=== PATIENT | male | born 1970 | race Caucasian/White ===

== ENCOUNTER 2016-05-25 18:57 | Inpatient (IN) | payer OTHER ==
[2016-05-25 19:21] VITALS: BMI 23.3
--- NOTE | 2016-05-25 20:21 | HP ---
COWS - Scale Resting Pulse: 0= [place] 80 or Below Sweatin= Chills/Flushing Restless Observation: 3= Extraneous Movement Pupil Size: 1= Pupils >than Normal Bone or Joint Aches: 2= Severe Diffuse Aches Runny Nose/ Eye Tearin= Runny Nose/Eyes GI Upset > 30mins: 1= Stomach Cramp Tremor Observation: 2= Slight Tremor Visible Yawning Observation: 1= 1-2x During Session Anxiety or Irritability: 2=Irritable/Anxious Goose Flesh Skin: 0=Smooth Skin COWS Score: 15 Admission ROS S - HPI Chief Complaint: WITHDRAWAL SX Allergies/Adverse Reactions: Allergies Allergy/AdvReac Type Severity Reaction Status Date / Time No Known Allergies Allergy Verified 05/25/16 19:50 History of Present Illness: 45 YEARS OLD MALE WITH LONG HISTORY OF OPIATE NICOTINE DEPENDENCE DENIES MEDICAL ISSUE DENIES MENTAL ILLNESS IS ADMITTED TO DETOX Exam Limitations: No Limitations - Ebola screening Have you traveled outside of the country in the last 21 days: No Have you had contact with anyone from an Ebola affected area: No Have you been sick,other than usual withdrawal symptoms: No Do you have a fever: No - Review of Systems Constitutional: Chills, Loss of Appetite, Changes in sleep, Unexplained wgt Loss EENT: reports: No Symptoms Reported Respiratory: reports: No Symptoms reported Cardiac: reports: No Symptoms Reported GI: reports: Poor Appetite, Poor Fluid Intake, Abdominal cramping : reports: No Symptoms Reported Musculoskeletal: reports: No Symptoms Reported Integumentary: reports: Change in Color (INNER ELBOWS) Neuro: reports: Tremors Endocrine: reports: No Symptoms Reported Hematology: reports: No Symptoms Reported Psychiatric: reports: Judgement Intact, Orientated x3 Other Systems: Reviewed and Negative Patient History - Patient Medical History Hx Anemia: No Hx Asthma: No Hx Chronic Obstructive Pulmonary Disease (COPD): No Hx Cancer: No Hx Cardiac Disorders: No Hx Congestive Heart Failure: No Hx Hypertension: No Hx Hypercholesterolemia: No Hx Pacemaker: No HX Cerebrovascular Accident: No Hx Seizures: No Hx Dementia: No Hx Diabetes: No Hx Gastrointestinal Disorders: No Hx Liver Disease: No Hx Genitourinary Disorders: No Hx Sexually Transmitted Disorders: No Hx Renal Disease (ESRD): No Hx Thyroid Disease: No Hx Human Immunodeficiency Virus (HIV): No (LAST 09/07 NEGATIVE) Hx Hepatitis C: No Hx Depression: No Hx Suicide Attempt: No Hx Bipolar Disorder: No Hx Schizophrenia: No - Patient Surgical History Past Surgical History: No Hx Neurologic Surgery: No Hx Cataract Extraction: No Hx Cardiac Surgery: No Hx Lung Surgery: No Hx Breast Surgery: No Hx Breast Biopsy: No Hx Abdominal Surgery: No Hx Appendectomy: No Hx Cholecystectomy: No Hx Genitourinary Surgery: No Hx Orthopedic Surgery: No - PPD History Previous Implant?: Yes Documented Results: Negative w/proof Implanted On Prior [facility] Admission?: Yes Date: 10/02/15 Results: 0 MM PPD to be Administered?: No - Smoking Cessation Smoking history: Current every day smoker Have you smoked in the past 12 months: Yes Aproximately how many cigarettes per day: 10 Cigars Per Day: 0 Hx Chewing Tobacco Use: No Initiated information on smoking cessation: Yes 'Breaking Loose' booklet given: 05/25/16 - Substance & Tx. History Hx Alcohol Use: No Hx Substance Use: Yes Substance Use Type: Cocaine, Marijuana, Opiates Hx Substance Use Treatment: No - Substances Abused Heroin Route: Injection Frequency: Daily Amount used: 10 BAGS Age of first use: 31 Date of Last Use: 05/24/16 Cocaine Route: Injection Frequency: Daily Amount used: 10 BAGS Age of first use: 31 Date of Last Use: 05/24/16 Family Disease History - Family Disease History Family Disease History: Other: Father (DECASED) Admission Physical Exam BHS - Vital Signs Vital Signs: Vital Signs - 24 hr 05/25/16 19:16 Temperature 97.8 F Pulse Rate 63 Respiratory 18 Rate Blood Pressure 105/65 - Physical General Appearance: Yes: Appropriately Dressed, Mild Distress, Thin, Tremorous, Irritable, Sweating, Anxious HEENTM: Yes: Hearing grossly Normal, Normal ENT Inspection, Normocephalic, Normal Voice Respiratory: Yes: Chest Non-Tender, Lungs Clear, Normal Breath Sounds, No Respiratory Distress, No Accessory Muscle Use Neck: Yes: Supple, Trachea in good position Breast: Yes: Breasts Symetrical Cardiology: Yes: Regular Rhythm, Regular Rate, S1, S2 Abdominal: Yes: Non Tender, Soft Genitourinary: Yes: Within Normal Limits Back: Yes: Normal Inspection Musculoskeletal: Yes: full range of Motion, Gait Steady, Back pain, Muscle Pain Extremities: Yes: Normal Range of Motion, Non-Tender, Tremors Neurological: Yes: Fully Oriented, Alert, Motor Strength 5/5, Normal Mood/Affect , Normal Response Integumentary: Yes: Warm, Track [place] Lymphatic: Yes: Within Normal Limits - Diagnostic (1) Opioid dependence with withdrawal Current Visit: Yes Status: Acute (2) Weight loss Current Visit: Yes Status: Acute (3) Nicotine dependence Current Visit: Yes Status: Acute Qualifiers: Nicotine product type: cigarettes Substance use status: in withdrawal Qualified Code(s): F17.213 - Nicotine dependence, cigarettes, with withdrawal Cleared for Admission [facility] - Detox or Rehab [facility] Level of Care: Medically Managed Detox Regimen/Protocol: Methadone [facility] Breath Alcohol Content Breath Alcohol Content: 0 Urine Drug Screen - Results Drug Screen Negative: No Urine Drug Screen Results: THC-Marijuana, MONIE-Cocaine, OPI-Opiates, MET- Methamphetamine, BZO-Benzodiazepines, MTD-Methadone, TCA-Tricyclic Antidepress
[2016-05-25] MEDS ORDERED: NICOTINE POLACRILEX 2 MG GUM BC PRN (20:27)
[2016-05-25] MEDS ORDERED: METHADONE HCL 10 MG TABLET (FOR DETOX USE ONLY) PO ONE ×2 (20:27→23:00)
[2016-05-25] MEDS ORDERED: ACETAMINOPHEN 325 MG TABLET (FP) PO PRN (20:27)
[2016-05-25] MEDS ORDERED: MAG HYDROX/AL HYDROX/SIMETH 30 ML UNIT-DOSE CUP PO PRN (20:27)
[2016-05-25] MEDS ORDERED: MENTHOL/PHENOL 1 EACH UD MM PRN (20:27)
[2016-05-25] MEDS ORDERED: MAGNESIUM CITRATE 300 ML BOTTLE PO PRN (20:27)
[2016-05-25] MEDS ORDERED: guaiFENesin/D-METHORPHAN HB 10 ML UNIT-DOSE CUPS PO PRN (20:27)
[2016-05-25] MEDS ORDERED: LOPERAMIDE HCL 2 MG CAPSULE PO PRN (20:27)
[2016-05-25] MEDS ORDERED: IBUPROFEN 400 MG TABLET (FP) PO PRN (20:27)
[2016-05-25] MEDS ORDERED: P-EPHED 60MG/TRIPROLIDI 2.5MG TABLET PO PRN (20:27)
[2016-05-25] MEDS ORDERED: MAGNESIUM HYDROX 2400MG/30ML ORAL SUSPENSION 30 ML CUP PO PRN (20:27)
[2016-05-25] MEDS: diazePAM 5 MG TABLET PO PRN (20:59)
[2016-05-25] MEDS: THIAMINE HCL 100 MG TABLET (FP) PO SCH (22:27)
[2016-05-25] MEDS: diphenhydrAMINE HCL 50 MG CAPSULE PO PRN (22:27)
--- NOTE | 2016-05-26 09:55 | PN ---
BHS COWS - Scale Resting Pulse: 1= [place] 81-100 Sweatin= Chills/Flushing Restless Observation: 1= Difficult to Sit Still Pupil Size: 1= Pupils >than Normal Bone or Joint Aches: 1= Mild Discomfort Runny Nose/ Eye Tearin= Nasal Congestion GI Upset > 30mins: 1= Stomach Cramp Tremor Observation of Outstretched Hands: 2= Slight Tremor Visible Yawning Observation: 0= None Anxiety or Irritability: 2=Irritable/Anxious Goose Flesh Skin: 0=Smooth Skin COWS Score: 11 BHS Progress Note (SOAP) Subjective: interrupting sleep, sweats, shakes Vital Signs Temperature 98.4 F 05/26/16 09:59 Pulse Rate 69 05/26/16 09:59 Respiratory Rate 16 05/26/16 09:59 Blood Pressure 100/65 05/26/16 09:59 O2 Sat by Pulse Oximetry (%) pending labs pt aox3 in nad ambulating Assessment: 05/26/16 10:15 withdrawl sx's Plan: cont. detox increase fluids
[2016-05-26] MEDS ORDERED: METHADONE HCL 10 MG TABLET (FOR DETOX USE ONLY) PO ONE (10:00)
[2016-05-26 10:14] LABS: MCH 31.6 pg (25.7-33.7); MCHC 33.6 g/dl (32.0-35.9); PLATELET COUNT 180 K/MM3 (134-434); RDW 12.9 % (11.9-15.9); WHITE BLOOD COUNT 5.2 K/mm3 (4.0-10.0)
[2016-05-26] MEDS: PRENATAL VITAMINS W/ FOLIC ACID TABLET (FP) PO SCH (10:31)
[2016-05-26] MEDS: diazePAM 5 MG TABLET PO PRN ×3 (10:31→22:35)
[2016-05-26 10:32] LABS: ALBUMIN 3.1 g/dl (3.4-5.0); ALK PHOS 64 U/L (45-117); ANION GAP 7 (8-16); BILIRUBIN,TOTAL 0.5 mg/dL (0.2-1.0); CALCIUM 8.9 mg/dL (8.5-10.1); CO2 30 mmol/L (21-32); CREATININE 0.9 mg/dL (0.7-1.3); GLUCOSE,RANDOM 74 mg/dL (74-106); SGOT/AST 61 U/L (15-37); SGPT/ALT 72 U/L (12-78); TOT PROT 6.6 g/dl (6.4-8.2)
[2016-05-26] MEDS: NICOTINE 14 MG/24 HOURS TOPICAL PATCH TD SCH (10:32)
[2016-05-26 13:03] LABS: URINE APPEARANCE CLEAR; URINE BILIRUBIN NEGATIVE (NEGATIVE); URINE BLOOD NEGATIVE (NEGATIVE); URINE COLOR YELLOW; URINE GLUCOSE (UA) NEGATIVE (NEGATIVE); URINE KETONE NEGATIVE (NEGATIVE); URINE LEUK ESTERASE NEGATIVE (NEGATIVE); URINE NITRITE NEGATIVE (NEGATIVE); URINE PROTEIN NEGATIVE (NEGATIVE); URINE UROBILINOGEN 2.0 E.U/dl E.U./dl (0.2-1.0)
--- NOTE | 2016-05-26 13:20 | EKG ---
Test Reason : Blood Pressure : / mmHG Vent. Rate : 069 BPM Atrial Rate : 069 BPM P-R Int : 112 ms QRS Dur : 094 ms QT Int : 416 ms P-R-T Axes : 055 074 039 degrees QTc Int : 445 ms NORMAL SINUS RHYTHM NORMAL ECG NO PREVIOUS ECGS AVAILABLE Confirmed by ALMA GORDON, EVA ([id number]) on 05/26/2016 1:20:19 PM Referred By: Confirmed By:EVA MARQUEZ MD
[2016-05-26] MEDS: THIAMINE HCL 100 MG TABLET (FP) PO SCH (22:35)
[2016-05-26] MEDS: diphenhydrAMINE HCL 50 MG CAPSULE PO PRN (22:35)
[2016-05-27] MEDS ORDERED: METHADONE HCL 5 MG TABLET (FOR DETOX USE ONLY) PO ONE (10:00)
[2016-05-27] MEDS: NICOTINE 14 MG/24 HOURS TOPICAL PATCH TD SCH (10:39)
[2016-05-27] MEDS: diazePAM 5 MG TABLET PO PRN ×2 (10:40→22:14)
[2016-05-27] MEDS: PRENATAL VITAMINS W/ FOLIC ACID TABLET (FP) PO SCH (10:40)
--- NOTE | 2016-05-27 11:54 | PN ---
BHS COWS - Scale Resting Pulse: 0= [place] 80 or Below Sweatin= Chills/Flushing Restless Observation: 1= Difficult to Sit Still Pupil Size: 0= Normal to Room Light Bone or Joint Aches: 1= Mild Discomfort Runny Nose/ Eye Tearin= Nasal Congestion GI Upset > 30mins: 1= Stomach Cramp Tremor Observation of Outstretched Hands: 2= Slight Tremor Visible Yawning Observation: 0= None Anxiety or Irritability: 2=Irritable/Anxious Goose Flesh Skin: 3=Piloerection COWS Score: 12 BHS Progress Note (SOAP) Subjective: Sweating, Tremors, Back Ache. Objective: Pt. A & O X 2 (Disoriented about Day). Pt. observed Ambulating on unit. 05/27/16 11:51 Vital Signs Temperature 98.3 F 05/27/16 09:36 Pulse Rate 80 05/27/16 09:36 Respiratory Rate 16 05/27/16 09:36 Blood Pressure 126/71 05/27/16 09:36 O2 Sat by Pulse Oximetry (%) Laboratory Last Values WBC 5.2 K/mm3 (4.0-10.0) 05/26/16 07:00 RBC 4.16 M/mm3 (4.00-5.60) 05/26/16 07:00 Hgb 13.1 GM/dL (11.7-16.9) 05/26/16 07:00 Hct 39.1 % (35.4-49) 05/26/16 07:00 MCV 94.0 fl (80-96) 05/26/16 07:00 MCHC 33.6 g/dl (32.0-35.9) 05/26/16 07:00 RDW 12.9 % (11.9-15.9) 05/26/16 07:00 Plt Count 180 K/MM3 (134-434) D 05/26/16 07:00 MPV 9.0 fl (7.5-11.1) 05/26/16 07:00 Sodium 141 mmol/L (136-145) 05/26/16 07:00 Potassium 4.4 mmol/L (3.5-5.1) 05/26/16 07:00 Chloride 104 mmol/L (98-107) 05/26/16 07:00 Carbon Dioxide 30 mmol/L (21-32) 05/26/16 07:00 Anion Gap 7 (8-16) L 05/26/16 07:00 BUN 13 mg/dL (7-18) 05/26/16 07:00 Creatinine 0.9 mg/dL (0.7-1.3) 05/26/16 07:00 Creat Clearance w eGFR > 60 (>60) 05/26/16 07:00 Random Glucose 74 mg/dL (74-106) 05/26/16 07:00 Calcium 8.9 mg/dL (8.5-10.1) 05/26/16 07:00 Total Bilirubin 0.5 mg/dL (0.2-1.0) 05/26/16 07:00 AST 61 U/L (15-37) H 05/26/16 07:00 ALT 72 U/L (12-78) 05/26/16 07:00 Alkaline Phosphatase 64 U/L (45-117) 05/26/16 07:00 Total Protein 6.6 g/dl (6.4-8.2) 05/26/16 07:00 Albumin 3.1 g/dl (3.4-5.0) L 05/26/16 07:00 Urine Color Yellow 05/26/16 09:00 Urine Appearance Clear 05/26/16 09:00 Urine pH 6.0 (5.0-8.0) 05/26/16 09:00 Ur Specific [place] 1.027 (1.001-1.035) 05/26/16 09:00 Urine Protein Negative (NEGATIVE) 05/26/16 09:00 Urine Glucose (UA) Negative (NEGATIVE) 05/26/16 09:00 Urine Ketones Negative (NEGATIVE) 05/26/16 09:00 Urine Blood Negative (NEGATIVE) 05/26/16 09:00 Urine Nitrite Negative (NEGATIVE) 05/26/16 09:00 Urine Bilirubin Negative (NEGATIVE) 05/26/16 09:00 Urine Urobilinogen 2.0 e.u/dl E.U./dl (0.2-1.0) 05/26/16 09:00 Ur Leukocyte Esterase Negative (NEGATIVE) 05/26/16 09:00 RPR Titer Nonreactive (NONREACTIVE) 05/26/16 07:00 LABS NOTED. 05/27/16 11:52 Assessment: 05/27/16 11:52 WITHDRAWAL SYMPTOMS. Plan: CONTINUE DETOX.
[2016-05-27] MEDS: THIAMINE HCL 100 MG TABLET (FP) PO SCH (22:14)
[2016-05-28] MEDS: diazePAM 5 MG TABLET PO PRN ×4 (05:49→20:25)
[2016-05-28] MEDS ORDERED: METHADONE HCL 5 MG TABLET (FOR DETOX USE ONLY) PO ONE (10:00)
--- NOTE | 2016-05-28 10:06 | PN ---
BHS Progress Note (SOAP) Subjective: INSOMNIA, ACHES, GI UPSET Objective: 05/28/16 10:05 Laboratory Tests 05/26/16 05/26/16 05/26/16 07:00 07:00 07:00 WBC 5.2 RBC 4.16 Hgb 13.1 Hct 39.1 MCV 94.0 MCHC 33.6 RDW 12.9 Plt Count 180 D MPV 9.0 Sodium 141 Potassium 4.4 Chloride 104 Carbon Dioxide 30 Anion Gap 7 L BUN 13 Creatinine 0.9 Creat Clearance w eGFR > 60 Random Glucose 74 Calcium 8.9 Total Bilirubin 0.5 AST 61 H ALT 72 Alkaline Phosphatase 64 Total Protein 6.6 Albumin 3.1 L Urine Color Urine Appearance Urine pH Ur Specific [place] Urine Protein Urine Glucose (UA) Urine Ketones Urine Blood Urine Nitrite Urine Bilirubin Urine Urobilinogen Ur Leukocyte Esterase RPR Titer Nonreactive 05/26/16 09:00 WBC RBC Hgb Hct MCV MCHC RDW Plt Count MPV Sodium Potassium Chloride Carbon Dioxide Anion Gap BUN Creatinine Creat Clearance w eGFR Random Glucose Calcium Total Bilirubin AST ALT Alkaline Phosphatase Total Protein Albumin Urine Color Yellow Urine Appearance Clear Urine pH 6.0 Ur Specific [place] 1.027 Urine Protein Negative Urine Glucose (UA) Negative Urine Ketones Negative Urine Blood Negative Urine Nitrite Negative Urine Bilirubin Negative Urine Urobilinogen 2.0 e.u/dl Ur Leukocyte Esterase Negative RPR Titer Vital Signs - 24 hr 05/27/16 05/27/16 05/27/16 15:04 20:25 22:02 Temperature 100.2 F H 98.6 F 98.1 F Pulse Rate 86 61 87 Respiratory 16 18 16 Rate Blood Pressure 118/69 94/63 115/66 05/28/16 05/28/16 05/28/16 00:30 03:30 06:00 Temperature 97.7 F Pulse Rate 59 L Respiratory 18 18 16 Rate Blood Pressure 94/56 Assessment: 05/28/16 10:05 ONGOING WITHDRAWAL Plan: CONTINUE DETOX PROTOCOL
[2016-05-28] MEDS: PRENATAL VITAMINS W/ FOLIC ACID TABLET (FP) PO SCH (10:14)
[2016-05-28] MEDS: NICOTINE 14 MG/24 HOURS TOPICAL PATCH TD SCH (10:15)
--- NOTE | 2016-05-28 18:54 | PN ---
BHS Progress Note Note: RECEIVED NURSE CALL PATIENT WANTS HIV TEST CONTINUE DETOX
[2016-05-28] MEDS: diphenhydrAMINE HCL 50 MG CAPSULE PO PRN (22:17)
[2016-05-28] MEDS: THIAMINE HCL 100 MG TABLET (FP) PO SCH (22:17)
[2016-05-29] MEDS ORDERED: METHADONE HCL 10 MG TABLET (FOR DETOX USE ONLY) PO ONE (10:00)
[2016-05-29] MEDS: NICOTINE 14 MG/24 HOURS TOPICAL PATCH TD SCH (10:22)
[2016-05-29] MEDS: PRENATAL VITAMINS W/ FOLIC ACID TABLET (FP) PO SCH (10:22)
--- NOTE | 2016-05-29 13:25 | PN ---
S Progress Note (SOAP) Subjective: ALERT,IRRITABLE,ANXIOUS,INTERRUPTED SLEEP,TREMOR,PAIN IN THE BODY AND BACK Objective: 05/29/16 13:24 Vital Signs Temperature 97.7 F 05/29/16 10:08 Pulse Rate 75 05/29/16 10:08 Respiratory Rate 20 05/29/16 10:08 Blood Pressure 133/97 05/29/16 10:08 O2 Sat by Pulse Oximetry (%) Assessment: 05/29/16 13:24 WITHDRAWAL SYMPTOM Plan: CONTINUE DETOX,
[2016-05-29 14:30] LABS: HIV 1 & 2 AB NEGATIVE; HIV 1 AGp24 NEGATIVE
[2016-05-29] MEDS: BACITRACIN 30 GM TUBE TOPICAL OINTMENT TP SCH ×2 (15:51→23:22)
[2016-05-29] MEDS: diphenhydrAMINE HCL 50 MG CAPSULE PO PRN (21:49)
[2016-05-29] MEDS: THIAMINE HCL 100 MG TABLET (FP) PO SCH (21:49)
[2016-05-30] MEDS ORDERED: METHADONE HCL 5 MG TABLET (FOR DETOX USE ONLY) PO ONE (06:00)
[2016-05-30 08:04] VITALS: BP 100/68; PULSE 53; TEMP 97.1
--- NOTE | 2016-05-30 08:59 | PN ---
S Progress Note (SOAP) Subjective: ALERT,NO COMPLAINT Objective: 05/30/16 08:58 Vital Signs Temperature 97.1 F L 05/30/16 08:02 Pulse Rate 53 L 05/30/16 08:02 Respiratory Rate 16 05/30/16 08:02 Blood Pressure 100/68 05/30/16 08:02 O2 Sat by Pulse Oximetry (%) Assessment: 05/30/16 08:58 DETOX COMPLETED,NO WITHDRAWAL SYMPTOM Plan: DISCHARGE TODAY,FOLLOW UP WITH AFTER CARE PROGRAM ARRANGEMENT
--- NOTE | 2016-05-30 09:01 | DS ---
[facility] Detox Discharge Summary Admission Date: 05/25/16 - History Present History: Cannabis Dependence, Cocaine Dependence, Opioid Dependence Additional Comments: FOLLOW UP WITH REVELATION ARRANGEMENT Pertinent Past History: NICOTINE DEPENDENCE WEIGHT LOSS - Physical Exam Results Vital Signs: Vital Signs Temperature 97.1 F L 05/30/16 08:02 Pulse Rate 53 L 05/30/16 08:02 Respiratory Rate 16 05/30/16 08:02 Blood Pressure 100/68 05/30/16 08:02 O2 Sat by Pulse Oximetry (%) Pertinent Admission Physical Exam Findings: WITHDRAWAL SYMPTOM - Treatment Hospital Course: Detox Protocol Followed, Detoxed Safely, Responded well, Discharged Condition Good, Rehab Referral Accepted Patient has Accepted a Rehab Referral to: [facility] - Medication Discharge Medications: Ambulatory Orders NK [No Known Home Medication] 09/30/15 - AMA Did Patient Leave Against Medical Advice: No
== END 2016-05-30 09:27 | disposition home or self-care (01) | DRG 773 ==
LOC: YASAS 18:57 → Y6N 19:50
PROVIDERS: ADMIT Internal Medicine; ATTEND Internal Medicine
PROC: HZ2ZZZZ Detoxification Services for Substance Abuse Treatment (ICD-10-PCS; principal; 2016-05-30)
DX: F11.23 Opioid dependence with withdrawal (principal); F17.213 Nicotine dependence, cigarettes, with withdrawal; R63.4 Abnormal weight loss; Z68.23 Body mass index [BMI] 23.0-23.9, adult
CPT/HCPCS: 36415; 80053; 81003; 85027; 86593; 87389; 93005; 93010

== ENCOUNTER 2016-11-22 16:58 | Inpatient (IN) | payer OTHER ==
[2016-11-22 19:40] VITALS: BMI 28.3
--- NOTE | 2016-11-22 21:13 | HP ---
COWS - Scale Resting Pulse: 0= [place] 80 or Below Sweatin= Chills/Flushing Restless Observation: 5= Unable to Sit Still Pupil Size: 1= Pupils >than Normal Bone or Joint Aches: 1= Mild Discomfort Runny Nose/ Eye Tearin= None GI Upset > 30mins: 0= None Tremor Observation: 0= None Yawning Observation: 1= 1-2x During Session Anxiety or Irritability: 2=Irritable/Anxious Goose Flesh Skin: 3=Piloerection COWS Score: 14 Admission ROS [facility] Chief Complaint: WITHDRAWAL SYMPTOMS Allergies/Adverse Reactions: Allergies Allergy/AdvReac Type Severity Reaction Status Date / Time No Known Allergies Allergy Verified 05/25/16 19:50 History of Present Illness: 46 y.o. man with a history of heroin and cocaine dependence is here seeking detox. He was last here for detox in 05/2016. He reports he has a history of 8 years of illicit drug abstinence. Exam Limitations: No Limitations - Ebola screening Have you traveled outside of the country in the last 21 days: No (N) Have you had contact with anyone from an Ebola affected area: No Have you been sick,other than usual withdrawal symptoms: No Do you have a fever: No - Review of Systems Constitutional: Loss of Appetite, Unintentional Wgt. Loss EENT: reports: Tearing Respiratory: reports: No Symptoms reported Cardiac: reports: No Symptoms Reported GI: reports: No Symptoms Reported : reports: No Symptoms Reported Musculoskeletal: reports: No Symptoms Reported Integumentary: reports: Bruising, Other (Track yost) Neuro: reports: No Symptoms reported Endocrine: reports: No Symptoms Reported Hematology: reports: No Symptoms Reported Psychiatric: reports: Orientated x3 Other Systems: Reviewed and Negative Patient History - Patient Medical History Hx Anemia: No Hx Asthma: No Hx Chronic Obstructive Pulmonary Disease (COPD): No Hx Cancer: No Hx Cardiac Disorders: No Hx Congestive Heart Failure: No Hx Hypertension: No Hx Hypercholesterolemia: No Hx Pacemaker: No HX Cerebrovascular Accident: No Hx Seizures: No Hx Dementia: No Hx Diabetes: No Hx Gastrointestinal Disorders: No Hx Liver Disease: No Hx Genitourinary Disorders: No Hx Sexually Transmitted Disorders: No Hx Renal Disease (ESRD): No Hx Thyroid Disease: No Hx Human Immunodeficiency Virus (HIV): No (LAST 09/07 NEGATIVE) Hx Hepatitis C: Yes (Untreated ) Hx Depression: No Hx Suicide Attempt: No Hx Bipolar Disorder: No Hx Schizophrenia: No - Patient Surgical History Past Surgical History: No Hx Neurologic Surgery: No Hx Cataract Extraction: No Hx Cardiac Surgery: No Hx Lung Surgery: No Hx Breast Surgery: No Hx Breast Biopsy: No Hx Abdominal Surgery: No Hx Appendectomy: No Hx Cholecystectomy: No Hx Genitourinary Surgery: No Hx Section: No Hx Orthopedic Surgery: No Anesthesia Reaction: No - PPD History Previous Implant?: Yes Documented Results: Negative w/proof Date: 10/02/15 Results: 0 MM PPD to be Administered?: Yes - Reproductive History Patient is a Female of Child Bearing Age (11 -55 yrs old): No - Smoking Cessation Smoking history: Current every day smoker Have you smoked in the past 12 months: Yes Aproximately how many cigarettes per day: 10 Cigars Per Day: 0 Hx Chewing Tobacco Use: No Initiated information on smoking cessation: Yes 'Breaking Loose' booklet given: 11/22/16 - Substance & Tx. History Hx Alcohol Use: No Hx Substance Use: Yes Substance Use Type: Cocaine, Heroin Hx Substance Use Treatment: Yes (Detox here in 04/2016) - Substances Abused Heroin Route: Injection Frequency: Daily Amount used: 1 bundle Age of first use: 31 Date of Last Use: 11/22/16 Cocaine Route: Injection Frequency: Daily Amount used: $200 Age of first use: 31 Date of Last Use: 11/22/16 Family Disease History - Family Disease History Family Disease History: Other: Father (DECASED) Admission Physical Exam BHS - Vital Signs Vital Signs: Vital Signs - 24 hr 11/22/16 19:37 Temperature 97.8 F Pulse Rate 70 Respiratory 18 Rate Blood Pressure 111/76 - Physical General Appearance: Yes: No Apparent Distress, Nourished, Disheveled HEENTM: Yes: Hearing grossly Normal, Normal ENT Inspection, Normocephalic, Normal Voice Respiratory: Yes: Chest Non-Tender, Lungs Clear, Normal Breath Sounds, No Respiratory Distress, No Accessory Muscle Use Neck: Yes: No masses,lesions,Nodules, Trachea in good position Breast: Yes: Breast Exam Deferred Cardiology: Yes: Regular Rhythm, Regular Rate Abdominal: Yes: Flat, Soft Genitourinary: Yes: Other (No complaints reported) Back: Yes: Normal Inspection Musculoskeletal: Yes: full range of Motion, Gait Steady, Pelvis Stable Extremities: Yes: Normal Capillary Refill, Normal Inspection, Normal Range of Motion, Non-Tender Neurological: Yes: Fully Oriented, Alert, Motor Strength 5/5, Normal Mood/Affect , Normal Response Integumentary: Yes: Normal Color, Dry, Warm, Track [place] Lymphatic: Yes: Within Normal Limits - Diagnostic (1) Nicotine dependence Current Visit: Yes Status: Chronic Qualifiers: Nicotine product type: cigarettes Substance use status: in withdrawal Qualified Code(s): F17.213 - Nicotine dependence, cigarettes, with withdrawal (2) Opioid dependence with withdrawal Current Visit: Yes Status: Chronic (3) Hepatitis C Current Visit: Yes Status: Chronic Cleared for Admission [facility] - Detox or Rehab [facility] Level of Care: Medically Managed Detox Regimen/Protocol: Methadone [facility] Breath Alcohol Content Breath Alcohol Content: 0 Urine Drug Screen - Results Drug Screen Negative: No Urine Drug Screen Results: MONIE-Cocaine, OPI-Opiates, BZO-Benzodiazepines, MTD- Methadone
[2016-11-22] MEDS ORDERED: MENTHOL/PHENOL 1 EACH UD MM PRN (22:51)
[2016-11-22] MEDS ORDERED: IBUPROFEN 400 MG TABLET (FP) PO PRN (22:51)
[2016-11-22] MEDS ORDERED: LOPERAMIDE HCL 2 MG CAPSULE PO PRN (22:51)
[2016-11-22] MEDS ORDERED: METHADONE HCL 10 MG TABLET (FOR DETOX USE ONLY) PO ONE ×2 (22:51→23:00)
[2016-11-22] MEDS ORDERED: ACETAMINOPHEN 325 MG TABLET (FP) PO PRN (22:51)
[2016-11-22] MEDS ORDERED: guaiFENesin/D-METHORPHAN HB 10 ML UNIT-DOSE CUPS PO PRN (22:51)
[2016-11-22] MEDS ORDERED: MAGNESIUM HYDROX 2400MG/30ML ORAL SUSPENSION 30 ML CUP PO PRN (22:51)
[2016-11-22] MEDS ORDERED: MAGNESIUM CITRATE 300 ML BOTTLE PO PRN (22:51)
[2016-11-22] MEDS ORDERED: P-EPHED 60MG/TRIPROLIDI 2.5MG TABLET PO PRN (22:51)
[2016-11-22] MEDS ORDERED: MAG HYDROX/AL HYDROX/SIMETH 30 ML UNIT-DOSE CUP PO PRN (22:51)
[2016-11-22] MEDS ORDERED: hydrOXYzine PAMOATE 50 MG CAPSULE (FP) PO PRN (22:51)
[2016-11-22] MEDS ORDERED: NICOTINE POLACRILEX 2 MG GUM BUC PRN (22:51)
[2016-11-22] MEDS: diphenhydrAMINE HCL 50 MG CAPSULE PO PRN (23:11)
[2016-11-23] MEDS: diazePAM 5 MG TABLET PO PRN ×3 (05:27→22:13)
[2016-11-23] MEDS: PRENATAL VITAMINS W/ FOLIC ACID TABLET (FP) PO SCH (09:55)
[2016-11-23] MEDS: NICOTINE 14 MG/24 HOURS TOPICAL PATCH TD SCH (09:55)
[2016-11-23] MEDS ORDERED: METHADONE HCL 10 MG TABLET (FOR DETOX USE ONLY) PO ONE (10:00)
[2016-11-23 10:26] LABS: MCH 30.8 pg (25.7-33.7); MCHC 33.4 g/dl (32.0-35.9); MEAN CELL VOLUME 92.3 fl (80-96); MEAN PLT VOLUME 7.9 fl (7.5-11.1); PLATELET COUNT 311 K/MM3 (134-434); RDW 13.5 % (11.9-15.9); WHITE BLOOD COUNT 6.9 K/mm3 (4.0-10.0)
--- NOTE | 2016-11-23 11:10 | PN ---
BHS COWS - Scale Resting Pulse: 0= [place] 80 or Below Sweatin=Flushed/Facial Moisture Restless Observation: 1= Difficult to Sit Still Pupil Size: 0= Normal to Room Light Bone or Joint Aches: 2= Severe Diffuse Aches Runny Nose/ Eye Tearin= Runny Nose/Eyes GI Upset > 30mins: 2= Nausea/Diarrhea Tremor Observation of Outstretched Hands: 2= Slight Tremor Visible Yawning Observation: 1= 1-2x During Session Anxiety or Irritability: 2=Irritable/Anxious Goose Flesh Skin: 0=Smooth Skin COWS Score: 14 BHS Progress Note (SOAP) Subjective: Anxiety,tremors,sweating,interrupted sleep,restless. Objective: 11/23/16 11:09 Vital Signs 11/23/16 11/23/16 06:14 10:02 Temperature 97.1 F L 97.8 F Pulse Rate 54 L 54 L Respiratory 18 18 Rate Blood Pressure 99/63 96/58 Laboratory Last Values WBC 6.9 K/mm3 (4.0-10.0) D 11/23/16 06:30 RBC 4.08 M/mm3 (4.00-5.60) 11/23/16 06:30 Hgb 12.6 GM/dL (11.7-16.9) 11/23/16 06:30 Hct 37.7 % (35.4-49) 11/23/16 06:30 MCV 92.3 fl (80-96) 11/23/16 06:30 MCH 30.8 pg (25.7-33.7) 11/23/16 06:30 MCHC 33.4 g/dl (32.0-35.9) 11/23/16 06:30 RDW 13.5 % (11.9-15.9) 11/23/16 06:30 Plt Count 311 K/MM3 (134-434) D 11/23/16 06:30 MPV 7.9 fl (7.5-11.1) D 11/23/16 06:30 Assessment: 11/23/16 11:09 Withdrawal sx. Plan: Continue detox
[2016-11-23 12:05] LABS: ALBUMIN 2.9 g/dl (3.4-5.0); ALK PHOS 96 U/L (45-117); ANION GAP 9 (8-16); BILIRUBIN,TOTAL 0.3 mg/dL (0.2-1.0); CALCIUM 9.3 mg/dL (8.5-10.1); CO2 28 mmol/L (21-32); CREATININE 0.8 mg/dL (0.7-1.3); GLUCOSE,RANDOM 72 mg/dL (74-106); SGOT/AST 76 U/L (15-37); SGPT/ALT 74 U/L (12-78); TOT PROT 6.9 g/dl (6.4-8.2)
[2016-11-23 12:41] LABS: URINE APPEARANCE CLEAR; URINE BILIRUBIN NEGATIVE (NEGATIVE); URINE BLOOD NEGATIVE (NEGATIVE); URINE COLOR YELLOW; URINE GLUCOSE (UA) NEGATIVE (NEGATIVE); URINE KETONE NEGATIVE (NEGATIVE); URINE LEUK ESTERASE NEGATIVE (NEGATIVE); URINE NITRITE NEGATIVE (NEGATIVE); URINE PROTEIN NEGATIVE (NEGATIVE); URINE UROBILINOGEN 4.0 E.U/dl mg/dL (0.2-1.0)
--- NOTE | 2016-11-23 14:06 | EKG ---
Test Reason : Blood Pressure : / mmHG Vent. Rate : 060 BPM Atrial Rate : 060 BPM P-R Int : 100 ms QRS Dur : 074 ms QT Int : 424 ms P-R-T Axes : 056 077 056 degrees QTc Int : 424 ms SINUS RHYTHM WITH SHORT UT OTHERWISE NORMAL ECG WHEN COMPARED WITH ECG OF 25-MAY-2016 21:11, NO SIGNIFICANT CHANGE WAS FOUND Confirmed by BIBI GOULD MD ([id number]) on 11/23/2016 2:06:19 PM Referred By: Confirmed By:BIBI GOULD MD
[2016-11-23] MEDS: diphenhydrAMINE HCL 50 MG CAPSULE PO PRN (22:13)
[2016-11-23] MEDS: THIAMINE HCL 100 MG TABLET (FP) PO SCH (22:13)
[2016-11-24] MEDS: PRENATAL VITAMINS W/ FOLIC ACID TABLET (FP) PO SCH (09:56)
[2016-11-24] MEDS: diazePAM 5 MG TABLET PO PRN ×2 (09:56→22:15)
[2016-11-24] MEDS: NICOTINE 14 MG/24 HOURS TOPICAL PATCH TD SCH (09:56)
[2016-11-24] MEDS ORDERED: METHADONE HCL 5 MG TABLET (FOR DETOX USE ONLY) PO ONE (10:00)
--- NOTE | 2016-11-24 15:02 | PN ---
BHS COWS - Scale Resting Pulse: 0= [place] 80 or Below Sweatin=Flushed/Facial Moisture Restless Observation: 1= Difficult to Sit Still Pupil Size: 0= Normal to Room Light Bone or Joint Aches: 1= Mild Discomfort Runny Nose/ Eye Tearin= Runny Nose/Eyes GI Upset > 30mins: 1= Stomach Cramp Tremor Observation of Outstretched Hands: 2= Slight Tremor Visible Yawning Observation: 2= >3x During Session Anxiety or Irritability: 2=Irritable/Anxious Goose Flesh Skin: 0=Smooth Skin COWS Score: 13 BHS Progress Note (SOAP) Subjective: Fatigue, Tremors, Sweating. Objective: PT. A & O X 2 (DISORIENTED ABOUT DAY / DATE). NO ACUTE DISTRESS. 11/24/16 15:00 Vital Signs Temperature 98.9 F 11/24/16 13:07 Pulse Rate 79 11/24/16 13:07 Respiratory Rate 18 11/24/16 13:07 Blood Pressure 111/66 11/24/16 13:07 O2 Sat by Pulse Oximetry (%) Laboratory Tests 11/22/16 11/23/16 11/23/16 10:30 06:30 06:30 WBC 6.9 D RBC 4.08 Hgb 12.6 Hct 37.7 MCV 92.3 MCH 30.8 MCHC 33.4 RDW 13.5 Plt Count 311 D MPV 7.9 D Sodium 139 Potassium 4.9 Chloride 102 Carbon Dioxide 28 Anion Gap 9 BUN 13 Creatinine 0.8 Creat Clearance w eGFR > 60 Random Glucose 72 L Calcium 9.3 Total Bilirubin 0.3 D AST 76 H D ALT 74 Alkaline Phosphatase 96 D Total Protein 6.9 Albumin 2.9 L Urine Color Yellow Urine Appearance Clear Urine pH 5.0 Ur Specific [place] 1.025 Urine Protein Negative Urine Glucose (UA) Negative Urine Ketones Negative Urine Blood Negative Urine Nitrite Negative Urine Bilirubin Negative Urine Urobilinogen 4.0 e.u/dl Ur Leukocyte Esterase Negative RPR Titer 11/23/16 06:30 WBC RBC Hgb Hct MCV MCH MCHC RDW Plt Count MPV Sodium Potassium Chloride Carbon Dioxide Anion Gap BUN Creatinine Creat Clearance w eGFR Random Glucose Calcium Total Bilirubin AST ALT Alkaline Phosphatase Total Protein Albumin Urine Color Urine Appearance Urine pH Ur Specific [place] Urine Protein Urine Glucose (UA) Urine Ketones Urine Blood Urine Nitrite Urine Bilirubin Urine Urobilinogen Ur Leukocyte Esterase RPR Titer Nonreactive LABS NOTED. Assessment: 11/24/16 15:01 WITHDRAWAL SYMPTOMS. Plan: CONTINUE DETOX. REPEAT AST ON 11/25/2016.
[2016-11-24] MEDS: THIAMINE HCL 100 MG TABLET (FP) PO SCH (22:15)
[2016-11-25] MEDS: diazePAM 5 MG TABLET PO PRN ×3 (05:31→22:39)
[2016-11-25] MEDS ORDERED: METHADONE HCL 5 MG TABLET (FOR DETOX USE ONLY) PO ONE (10:00)
[2016-11-25] MEDS: PRENATAL VITAMINS W/ FOLIC ACID TABLET (FP) PO SCH (10:28)
[2016-11-25] MEDS: NICOTINE 14 MG/24 HOURS TOPICAL PATCH TD SCH (10:30)
--- NOTE | 2016-11-25 16:39 | PN ---
[facility] Progress Note (SOAP) Subjective: Tremors. Objective: PT. A & O X 3, OBSERVED AMBULATING ON UNIT. NO ACUTE DISTRESS. 11/25/16 16:35 Vital Signs Temperature 99.2 F 11/25/16 13:56 Pulse Rate 70 11/25/16 13:56 Respiratory Rate 18 11/25/16 13:56 Blood Pressure 106/69 11/25/16 13:56 O2 Sat by Pulse Oximetry (%) Laboratory Tests 11/22/16 11/23/16 11/23/16 10:30 06:30 06:30 WBC 6.9 D RBC 4.08 Hgb 12.6 Hct 37.7 MCV 92.3 MCH 30.8 MCHC 33.4 RDW 13.5 Plt Count 311 D MPV 7.9 D Sodium 139 Potassium 4.9 Chloride 102 Carbon Dioxide 28 Anion Gap 9 BUN 13 Creatinine 0.8 Creat Clearance w eGFR > 60 Random Glucose 72 L Calcium 9.3 Total Bilirubin 0.3 D AST 76 H D ALT 74 Alkaline Phosphatase 96 D Total Protein 6.9 Albumin 2.9 L Urine Color Yellow Urine Appearance Clear Urine pH 5.0 Ur Specific [place] 1.025 Urine Protein Negative Urine Glucose (UA) Negative Urine Ketones Negative Urine Blood Negative Urine Nitrite Negative Urine Bilirubin Negative Urine Urobilinogen 4.0 e.u/dl Ur Leukocyte Esterase Negative RPR Titer 11/23/16 11/25/16 06:30 07:30 WBC RBC Hgb Hct MCV MCH MCHC RDW Plt Count MPV Sodium Potassium Chloride Carbon Dioxide Anion Gap BUN Creatinine Creat Clearance w eGFR Random Glucose Calcium Total Bilirubin AST 52 H D ALT Alkaline Phosphatase Total Protein Albumin Urine Color Urine Appearance Urine pH Ur Specific [place] Urine Protein Urine Glucose (UA) Urine Ketones Urine Blood Urine Nitrite Urine Bilirubin Urine Urobilinogen Ur Leukocyte Esterase RPR Titer Nonreactive LABS NOTED. RESULT OF REPEAT AST NOTED. 11/25/16 16:37 11/25/16 16:38 Assessment: 11/25/16 16:36 WITHDRAWAL SYMPTOMS. Plan: CONTINUE DETOX. INCREASE PO FLUID INTAKE.
[2016-11-25] MEDS: THIAMINE HCL 100 MG TABLET (FP) PO SCH (22:37)
[2016-11-25] MEDS: diphenhydrAMINE HCL 50 MG CAPSULE PO PRN (22:53)
[2016-11-26] MEDS ORDERED: METHADONE HCL 10 MG TABLET (FOR DETOX USE ONLY) PO ONE (10:00)
[2016-11-26] MEDS: PRENATAL VITAMINS W/ FOLIC ACID TABLET (FP) PO SCH (10:38)
[2016-11-26] MEDS: NICOTINE 14 MG/24 HOURS TOPICAL PATCH TD SCH (10:38)
--- NOTE | 2016-11-26 12:58 | PN ---
[facility] Progress Note (SOAP) Subjective: Tremors, Fatigue. Objective: PT. A & O X 3, OBSERVED AMBULATING ON UNIT. NO ACUTE DISTRESS. 11/26/16 12:57 Vital Signs Temperature 98.8 F 11/26/16 10:00 Pulse Rate 68 11/26/16 10:00 Respiratory Rate 18 11/26/16 10:00 Blood Pressure 113/65 11/26/16 10:00 O2 Sat by Pulse Oximetry (%) Laboratory Tests 11/22/16 11/23/16 11/23/16 10:30 06:30 06:30 WBC 6.9 D RBC 4.08 Hgb 12.6 Hct 37.7 MCV 92.3 MCH 30.8 MCHC 33.4 RDW 13.5 Plt Count 311 D MPV 7.9 D Sodium 139 Potassium 4.9 Chloride 102 Carbon Dioxide 28 Anion Gap 9 BUN 13 Creatinine 0.8 Creat Clearance w eGFR > 60 Random Glucose 72 L Calcium 9.3 Total Bilirubin 0.3 D AST 76 H D ALT 74 Alkaline Phosphatase 96 D Total Protein 6.9 Albumin 2.9 L Urine Color Yellow Urine Appearance Clear Urine pH 5.0 Ur Specific [place] 1.025 Urine Protein Negative Urine Glucose (UA) Negative Urine Ketones Negative Urine Blood Negative Urine Nitrite Negative Urine Bilirubin Negative Urine Urobilinogen 4.0 e.u/dl Ur Leukocyte Esterase Negative RPR Titer 11/23/16 11/25/16 06:30 07:30 WBC RBC Hgb Hct MCV MCH MCHC RDW Plt Count MPV Sodium Potassium Chloride Carbon Dioxide Anion Gap BUN Creatinine Creat Clearance w eGFR Random Glucose Calcium Total Bilirubin AST 52 H D ALT Alkaline Phosphatase Total Protein Albumin Urine Color Urine Appearance Urine pH Ur Specific [place] Urine Protein Urine Glucose (UA) Urine Ketones Urine Blood Urine Nitrite Urine Bilirubin Urine Urobilinogen Ur Leukocyte Esterase RPR Titer Nonreactive LABS NOTED. Assessment: 11/26/16 12:58 WITHDRAWAL SYMPTOMS. Plan: CONTINUE DETOX.
[2016-11-26] MEDS: THIAMINE HCL 100 MG TABLET (FP) PO SCH (22:41)
[2016-11-26] MEDS: diphenhydrAMINE HCL 50 MG CAPSULE PO PRN (22:41)
[2016-11-27] MEDS ORDERED: METHADONE HCL 5 MG TABLET (FOR DETOX USE ONLY) PO ONE (06:00)
[2016-11-27 06:41] VITALS: BP 99/59; PULSE 65; TEMP 97
[2016-11-27] MEDS: NICOTINE 14 MG/24 HOURS TOPICAL PATCH TD SCH (11:16)
[2016-11-27] MEDS: PRENATAL VITAMINS W/ FOLIC ACID TABLET (FP) PO SCH (11:16)
--- NOTE | 2016-11-28 11:44 | DS ---
[facility] Detox Discharge Summary Admission Date: 11/22/16 Discharge Date: 11/27/16 - History Present History: Opioid Dependence Additional Comments: PATIENT GOING HOME; ADVISED TO CONSIDER LOCAL 12-STEP / NA OUTPATIENT PROGRAMS FOR FOLLOW-UP AFTERCARE. PATIENT DISCHARGED FROM UNIT IN STABLE MEDICAL CONDITION. Pertinent Past History: Hep C. - Physical Exam Results Vital Signs: Vital Signs Temperature 97 F L 11/27/16 06:40 Pulse Rate 65 11/27/16 06:40 Respiratory Rate 18 11/27/16 06:40 Blood Pressure 99/59 11/27/16 06:40 O2 Sat by Pulse Oximetry (%) Pertinent Admission Physical Exam Findings: WITHDRAWAL SYMPTOMS. Laboratory Tests 11/22/16 11/23/16 11/23/16 10:30 06:30 06:30 WBC 6.9 D RBC 4.08 Hgb 12.6 Hct 37.7 MCV 92.3 MCH 30.8 MCHC 33.4 RDW 13.5 Plt Count 311 D MPV 7.9 D Sodium 139 Potassium 4.9 Chloride 102 Carbon Dioxide 28 Anion Gap 9 BUN 13 Creatinine 0.8 Creat Clearance w eGFR > 60 Random Glucose 72 L Calcium 9.3 Total Bilirubin 0.3 D AST 76 H D ALT 74 Alkaline Phosphatase 96 D Total Protein 6.9 Albumin 2.9 L Urine Color Yellow Urine Appearance Clear Urine pH 5.0 Ur Specific [place] 1.025 Urine Protein Negative Urine Glucose (UA) Negative Urine Ketones Negative Urine Blood Negative Urine Nitrite Negative Urine Bilirubin Negative Urine Urobilinogen 4.0 e.u/dl Ur Leukocyte Esterase Negative RPR Titer 11/23/16 11/25/16 06:30 07:30 WBC RBC Hgb Hct MCV MCH MCHC RDW Plt Count MPV Sodium Potassium Chloride Carbon Dioxide Anion Gap BUN Creatinine Creat Clearance w eGFR Random Glucose Calcium Total Bilirubin AST 52 H D ALT Alkaline Phosphatase Total Protein Albumin Urine Color Urine Appearance Urine pH Ur Specific [place] Urine Protein Urine Glucose (UA) Urine Ketones Urine Blood Urine Nitrite Urine Bilirubin Urine Urobilinogen Ur Leukocyte Esterase RPR Titer Nonreactive LABS NOTED. - Treatment Hospital Course: Detox Protocol Followed, Detoxed Safely, Responded well, Discharged Condition Good Patient has Accepted a Rehab Referral to: PATIENT GOING HOME. SEE ADDITIONAL COMMENTS SECTION ABOVE. - Medication Discharge Medications: Ambulatory Orders NK [No Known Home Medication] 09/30/15 - Diagnosis (1) Hepatitis C Status: Chronic Qualifiers: Viral hepatitis chronicity: chronic Hepatic coma status: without hepatic coma Qualified Code(s): B18.2 - Chronic viral hepatitis C (2) Nicotine dependence Status: Chronic Qualifiers: Nicotine product type: cigarettes Substance use status: in withdrawal Qualified Code(s): F17.213 - Nicotine dependence, cigarettes, with withdrawal (3) Opioid dependence with withdrawal Status: Acute - AMA Did Patient Leave Against Medical Advice: No
== END 2016-11-27 08:45 | disposition home or self-care (01) | DRG 773 ==
LOC: YASAS 16:58 → Y3N 21:30
PROVIDERS: ADMIT Internal Medicine; ATTEND Internal Medicine
PROC: HZ2ZZZZ Detoxification Services for Substance Abuse Treatment (ICD-10-PCS; principal; 2016-11-22)
DX: F11.23 Opioid dependence with withdrawal (principal); F17.213 Nicotine dependence, cigarettes, with withdrawal; B18.2 Chronic viral hepatitis C
CPT/HCPCS: 36415; 80053; 81003; 84450; 85027; 86593; 93005; 93010